=== PATIENT | male | born 1980 | race African-American/Black ===

== ENCOUNTER 2025-03-12 14:48 | Emergency (ER) | payer OTHER ==
[~2025-03-12] VITALS: Ht 200.7 cm; Wt 150.0 kg
[2025-03-12 14:54] VITALS: TEMP 36.6; O2SAT 96
[2025-03-12] MEDS: KETOROLAC 30MG/ML VIAL IM ONE (17:22)
[2025-03-12] MEDS: CYCLOBENZAPRINE 10MG TABLET PO ONE (17:23)
[2025-03-12] MEDS: LIDOCAINE 5% PATCH TOP STA (17:23)
[2025-03-12] MEDS ORDERED: CYCL10TA21 MT (18:36)
[2025-03-12] MEDS ORDERED: IBUP-2030 MT (18:36)
[2025-03-12] MEDS ORDERED: LIDO700A30 TP (18:36)
[2025-03-12 18:53] VITALS: BP 152/82; PULSE 73; RESP 18; O2SAT 98
== END 2025-03-12 19:00 | disposition home or self-care (01) ==
LOC: ER 14:48
DX: S06.9X9A Unspecified intracranial injury with loss of consciousness of unspecified duration, initial encounter (principal); S16.1XXA Strain of muscle, fascia and tendon at neck level, initial encounter; M25.512 Pain in left shoulder; Z98.890 Other specified postprocedural states; V49.9XXA Car occupant (driver) (passenger) injured in unspecified traffic accident, initial encounter; Y93.89 Activity, other specified; Y92.89 Other specified places as the place of occurrence of the external cause; Y99.8 Other external cause status
CPT/HCPCS: 99285; 70450; 72100; 96372; J1885; A4606